=== PATIENT | female | born 1980 | race Caucasian/White ===

== ENCOUNTER → 2017-02-13 | Outpatient (CLI) | payer OTHER, MEDICAID ==
[~2017-02-13] MED LIST: IBUP600 PO; PERI8.6T PO
== END ==
LOC: HPND 13:13
PROVIDERS: ATTEND Obstetrics & Gynecology
DX: O09.522 Supervision of elderly multigravida, second trimester (principal); O43.192 Other malformation of placenta, second trimester; Z3A.20 20 weeks gestation of pregnancy
CPT/HCPCS: 76805

== ENCOUNTER → 2017-04-17 | Outpatient (CLI) | payer OTHER, MEDICAID ==
[~2017-04-17] MED LIST changes: +AMOX500T PO; +GUAI100S9 PO
== END ==
LOC: HPND 10:53
PROVIDERS: ATTEND Obstetrics & Gynecology
DX: O09.523 Supervision of elderly multigravida, third trimester (principal); O99.323 Drug use complicating pregnancy, third trimester; O43.193 Other malformation of placenta, third trimester; Z3A.29 29 weeks gestation of pregnancy
CPT/HCPCS: 76811; 76825; 76827; 93325

== ENCOUNTER 2017-05-06 14:22 | Emergency (ER) | payer MEDICAID, OTHER ==
[~2017-05-06 14:22] MED LIST changes: -AMOX500T PO; -GUAI100S9 PO
[2017-05-06] MEDS ORDERED: LACTATED RINGER'S 1000 ML INJ 1,000 ML IV ONE (15:45)
[2017-05-06] MEDS ORDERED: AMOX500T PO (15:48)
[2017-05-06] MEDS ORDERED: GUAI100S9 PO (15:48)
[2017-05-06] MEDS ORDERED: PROMETHAZINE/CODEINE 6.25 MG/10 MG/5 ML CUP PO ONE (16:00)
--- NOTE | 2017-05-06 16:19 | PD ---
HPI Chief Complaint feeling poorly for two weeks Date Seen: May 06, 2017 Time Seen: 15:15 Travel History International Travel<30 Days: No Contact w/Intl Traveler<30Days: No History of Present Illness HPI 37 YO at 32/3 weeks IUP presents with 2 weeks cold and flu-like sxs that she likely contracted from her 10 mo old son. Began as a viral-like illness that improved then got worse. Pt has had subjective fevers, associated chills and sweats, cough productive of green/brown sputum and N/V/D. The N/V/D abated several days ago, but coughing fits and feeling "lousy" persist. 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 Obstetric History Obstetric History Past Surgical History Surgical History: No Previous Surgery Family History Narrative Family History Father has neuropathy; mother is healthy Social History Alcohol Use: Yes (occasional use 1-2 times/month) Tobacco Use: Yes (former smoker: 20 years x 1 ppd and quit at 6 weeks into this ) Substance Abuse: No Allergies-Medications (Allergen,Severity, Reaction): Coded Allergies: No Known Allergies (Unverified , 07/12/16) Home Meds Active Scripts Amoxicillin 500 Mg [id number] Mg PO TID #15 TAB Ref 0 Prov:Lion Garsia MD R1 05/06/17 Codeine Phosphate/Guaifenesin (Guaifenesin-Codeine Syrup)5 Ml Liquid5 Ml PO Q6HR PRN (COUGH) #1 BOTTLE Prov:Lion Garsia MD R1 05/06/17 Sennosides-Docusate Sodium (Mary-Colace 8.6-50 mg)1 Tab Tab2 Tab PO Q12H PRN ( CONSTIPATION) #28 TAB Ref 1 Prov:Armida Solomon MD 07/12/16 Ibuprofen (Motrin 600 Mg Tab)600 Mg [id number] Mg PO Q6H PRN ( CRAMPING) # 30 TAB Ref 1 Prov:Armida Solomon MD 07/12/16 Review of Systems General / Constitutional: Fever, Chills Eyes: No: Diploplia, Blurred Vision, Visual changes, Pain, Photophobia, Other HENT: Headaches Cardiovascular: Chest Pain or Discomfort (associated with cough) Respiratory: Cough, Short of Breath, Wheezing Gastrointestinal: Nausea, Vomiting, Diarrhea, Abdominal Pain Genitourinary: Pelvic Pain Skin: No Rash, No Itching, No Dryness, No Lumps, No Change in Pigmentation, No Change in Nails, No Alopecia, No Lesions, No Breast Lumps, No Breast Tenderness , No Breast Swelling, No Other Neurologic: No: Weakness, Dizziness, Syncope, Focal Abnormalities, Coordination Problem, Headache, Slurred Speech, Seizures, Other Psychiatric: No: Anxiety, Depression, Suicidal Ideations, Disorder of Thought, Mood Disorder, Substance Abuse, Homicidal Ideation, Other Physical Exam AFVSS Narrative GENERAL: WDWN woman, notable for cough. SKIN: Warm and clammy. HEAD: Normocephalic and atraumatic. EYES: No scleral icterus. No injection or drainage. EOMI. ENT: No nasal drainage noted. Mucous membranes pink. Airway patent. No pharyngeal exudate. NECK: Supple, trachea midline. No lymphadenopathy. CARDIOVASCULAR: Regular rate and rhythm without murmurs, gallops, or rubs. RESPIRATORY: Breath sounds equal bilaterally. No accessory muscle use. Coughing regularly with mild expiratory wheezing. No rales or ronchi ABDOMEN/GI: Abdomen soft, mildly tender suprapubic area, bowel sounds present, no rebound, no guarding Gravid to 32 weeks size FHT's: Category: I Baseline: 120 Reactive: yes Variability: moderate Decels: no EXTREMITIES: No cyanosis or edema. BACK: Nontender without obvious deformity. No CVA tenderness. NEUROLOGICAL: Awake and alert. Motor and sensory grossly within normal limits. Normal speech. Data Data Vital Signs Reviewed: Yes Orders Vital Signs (Adult) .ON ADMISSION (05/06/17 15:33) ^ Labor Status (05/06/17 15:33) Urinalysis - C+S If Indicated (05/06/17 15:33) ^ Non Stress Test (05/06/17 15:33) ^ Hydration (05/06/17 15:33) Ceftriaxone Inj (Rocephin Inj) (05/06/17 16:45) Lactated Ringer's 1000 Ml Inj (Lr 1000 M (05/06/17 15:45) Promethazine/Codeine Liq (Phenergan-Code (05/06/17 15:45) MDM Medical Record Reviewed: Yes Narrative Course / MDM 37 YO at 32/2 weeks presents with cold/flu sxs x2 weeks 1. IUP - Reassuring status 2. Cold/flu sxs with ddx including viral or bacterial bronchitis vs PNA - LR 1L Fluid bolus - Rocephin 1g IV x1 followed by PO amox beginning tomorrow - Phenergan-Codeine capsules for cough - Sputum cx and gram stain for expectorated sputum - IV Zofran 4 mg for nausea associated with cough - Rapid flu antigen neg 3. Dispo: home Diagnosis Diagnosis: Primary Impression: Cough Additional Impression: Bronchitis Disposition: DISCHARGE HOME Condition: Stable Scripts Amoxicillin 500 Mg [id number] Mg PO TID #15 TAB Ref 0 Prov:Lion Garsia MD R1 05/06/17 Codeine Phosphate/Guaifenesin (Guaifenesin-Codeine Syrup)5 Ml Liquid5 Ml PO Q6HR PRN (COUGH) #1 BOTTLE Prov:Lion Garsia MD R1 05/06/17 Lion Garsia MD R1 May 06, 2017 16:19
[2017-05-06 16:30] VITALS: PULSE 97
[2017-05-06 16:32] LABS: BACTERIA, URINE MANY /hpf; BLOOD, URINE NEG (NEG); COMMENT (UR) CULTURE INDICATED; CULTURE IF INDICATED CULTURE INDICATED; GLUCOSE,URINE NEG (NEG); KETONE, URINE NEG (NEG); MUCUS URINE FEW /lpf (OCC); NITRITE,URINE NEG (NEG); PH, URINE 6.5 (5.0-8.5); SQUAMOUS EPITHELIAL CELL URINE 10 /hpf (0-5); URINE COLOR YELLOW (YELLW/STRAW)
[2017-05-06 16:35] VITALS: PULSE 105
[2017-05-06 16:40] VITALS: PULSE 129
[2017-05-06] MEDS ORDERED: cefTRIAXone INJ 1,000 MG in SODIUM CHLORIDE 0.9% INJ 100 ML IV ONE (16:45)
[2017-05-06] MEDS ORDERED: ONDANSETRON HCL 4 MG/2 ML VIAL IV PUSH ONE (17:00)
--- NOTE | 2017-05-06 17:14 | PD ---
History of Present Illness Date Seen: May 06, 2017 History of Present Illness Patient is 37-year-old white female [address] Munoz care now complains of severe coughing upper respiratory symptoms over the last 2 weeks been getting worse in the last day or so. She has had she describes a fever at home she did not measure , she's noted chills and the night sweats. She had some nausea vomiting today, the main problem is just this relentless cough, she is coughing up some green sputum as well she complains of her head feeling like is going to" explode" and that her chest hurts at times her lungs sound clear except some minimal wheezing there is no rales or rhonchi, upper respiratory tract within normal limits heart rate tracing is reactive and no contractions patient received a liter of IV fluid, Zofran 4 mg IV, 1 g of Rocephin IV and oral Phenergan with codeine cough syrup and given a prescription for codeine and: Guaifenesin elixir at home also given a prescription for amoxicillin 500 mg 3 times a day she is to increase her fluid intake at home use Tylenol liberally for discomfort and a low-grade fever. She is to follow-up with Dr. Munoz for further evaluation if symptoms persist Santiago Tan II, MD May 06, 2017 17:14
--- NOTE | 2017-05-08 15:53 | HHI.PR ---
Addendum to Inpatient Note Addendum Reason: Additional Documentation Additional Information Attempted to call patient and patient's about positive sputum culture for strep pneumoniae. Patient's number was wrong and no voicemail could be left at listed number for . Treatment she was given should adequately cover strep pneumoniae in any case (rocepin x1 plus 5 days of high dose amoxicillin). Diego Sue Dr., MD R1 May 08, 2017 15:52
== END 2017-05-06 18:20 | disposition home or self-care (01) ==
LOC: HOBED 14:22
DX: R05 Cough (principal); O99.513 Diseases of the respiratory system complicating pregnancy, third trimester; J40 Bronchitis, not specified as acute or chronic; B95.3 Streptococcus pneumoniae as the cause of diseases classified elsewhere; B96.89 Other specified bacterial agents as the cause of diseases classified elsewhere; Z3A.32 32 weeks gestation of pregnancy
CPT/HCPCS: 59025; 81001; 86403; 87070; 87086; 87186; 87205; 87804; 96374; 96375; 99284; J0696; J2405; J7120

== ENCOUNTER → 2017-05-14 | Outpatient (CLI) | payer OTHER, MEDICAID ==
[~2017-05-14] MED LIST changes: +AMOX500T PO; +GUAI100S9 PO
== END ==
LOC: HPND 11:09
PROVIDERS: ATTEND Obstetrics & Gynecology
DX: O35.8XX0 Maternal care for other (suspected) fetal abnormality and damage, not applicable or unspecified (principal); O09.523 Supervision of elderly multigravida, third trimester; O99.323 Drug use complicating pregnancy, third trimester; Z3A.33 33 weeks gestation of pregnancy
CPT/HCPCS: 76816

== ENCOUNTER → 2017-05-23 | Outpatient (CLI) | payer MEDICAID | LOC: HPND 11:14 | PROVIDERS: ATTEND Obstetrics & Gynecology | DX: O35.8XX0 Maternal care for other (suspected) fetal abnormality and damage, not applicable or unspecified (principal); O99.323 Drug use complicating pregnancy, third trimester; O09.523 Supervision of elderly multigravida, third trimester | CPT/HCPCS: 76815 ==

== ENCOUNTER 2017-06-11 12:47 | Inpatient (IN) | payer OTHER, MEDICAID ==
[2017-06-11] VITALS (27 sets, daily range): BP systolic 112–139; BP diastolic 57–94; PULSE 66–108; RESP 16–18; TEMP 97.7–98.8
[2017-06-11] MEDS ORDERED: fentaNYL 2MCG-BUPIV 0.125% INJ 100 ML ONE (13:49)
[2017-06-11 13:52] LABS: AUTOMATED NEUTROPHIL # 9.9 TH/MM3 (1.8-7.7); BASOPHIL % 0.3 % (0.0-2.0); EOSINOPHIL # 0.1 TH/MM3 (0-0.4); HEMATOCRIT 39.2 % (35.0-46.0); HEMO FLAGS DIFF FINAL; LYMPH % 18.2 % (9.0-44.0); LYMPHOCYTE # 2.4 TH/MM3 (1.0-4.8); MEAN CELL VOLUME 96.6 FL (80.0-100.0); MEAN CORPUSCULAR HEMOGLOBIN 32.3 PG (27.0-34.0); MEAN CORPUSCULAR HGB CONC 33.4 % (32.0-36.0); MONO % 5.6 % (0.0-8.0); NEUT % 74.9 % (16.0-70.0); PLATELET COUNT 268 TH/MM3 (150-450); RED BLOOD COUNT 4.06 MIL/MM3 (4.00-5.30); WHITE BLOOD COUNT 13.2 TH/MM3 (4.0-11.0)
[2017-06-11] MEDS ORDERED: MINERAL OIL 10 ML VIAL TOPICAL PRN (14:00)
[2017-06-11] MEDS ORDERED: OXYTOCIN 30 UNITS 500ML PREMIX IV ONE (14:00)
[2017-06-11] MEDS ORDERED: LACTATED RINGER'S 1000 ML BOLUS IV PRN (14:00)
[2017-06-11] MEDS ORDERED: NS 500 ML BOLUS IV PRN (14:00)
[2017-06-11] MEDS ORDERED: LACTATED RINGER'S 1000 ML IV SCH (14:00)
[2017-06-11] MEDS ORDERED: LIDOCAINE HCL 1% 50 ML VIAL INFIL PRN (14:00)
[2017-06-11] MEDS ORDERED: NS 1000 ML IV PRN (14:00)
[2017-06-11] MEDS ORDERED: LIDOCAINE HCL 1% 50 ML VIAL I-DERMAL PRN (14:15)
[2017-06-11] MEDS ORDERED: OXYTOCIN 30 UNITS/NS 500ML PREMIX IV SCH (14:15)
[2017-06-11] MEDS ORDERED: CITRIC ACID-SODIUM CITRATE LIQ 30 ML UDC PO SCH (14:15)
[2017-06-11] MEDS ORDERED: ONDANSETRON HCL 4 MG/2 ML VIAL IV PRN (14:15)
[2017-06-11 14:17] LABS: BLOOD, URINE NEG (NEG); COMMENT (UR) CULT NOT INDICATED; CULTURE IF INDICATED CULT NOT INDICATED; GLUCOSE,URINE NEG (NEG); KETONE, URINE NEG (NEG); MUCUS URINE FEW /lpf (OCC); NITRITE,URINE NEG (NEG); PH, URINE 7.5 (5.0-8.5); SQUAMOUS EPITHELIAL CELL URINE <1 /hpf (0-5); URINE COLOR YELLOW (YELLW/STRAW)
[2017-06-11] MEDS ORDERED: fentaNYL 2MCG-BUPIV 0.125% 100 ML EPIDURAL SCH (14:30)
[2017-06-11] MEDS ORDERED: ePHEDrine/NS 25 MG/5 ML SYR IV PRN (14:30)
[2017-06-11] MEDS ORDERED: NO SYSTEM NARCOTICS PRN (14:30)
[2017-06-11] MEDS ORDERED: DO NOT ADMINISTER ANTICOAGULANTS PRN (14:30)
[2017-06-11] MEDS ORDERED: MEASLES, MUMPS, RUBELLA VACCINE 0.5 ML VIAL SQ ONE (16:00)
[2017-06-11] MEDS ORDERED: DIPHTH/TETANUS/ACEL PERTUSSIS (BOOSTER) 0.5 ML VIAL/PFS IM ONE (16:00)
--- NOTE | 2017-06-11 17:25 | PD.OB.DELI ---
Delivery Date: Jun 11, 2017 Anesthesia: Epidural Episiotomy: None Vaginal Delivery: Normal Presentation: Occiput anterior Nuchal Cord: x2 Delayed cord clamping (45 sec): Yes Infant: Female One Minute : 8 Five Minute : 9 Weight: 6/5 Placenta: Spontaneous delivery, Intact, 3 vessel cord Laceration: Perineal laceration, 1 deg Repair: Vicryl running Estimated blood loss: 350 Additional Information Beautiful delivery of baby Garima Small first degree laceration of perineum and left periurethral area repaired with 3-0, 5-0 vicryl. Kodi Munoz MD Jun 11, 2017 17:25
[2017-06-11] MEDS ORDERED: ZOLPIDEM TARTRATE 5 MG TAB PO PRN (17:30)
[2017-06-11] MEDS ORDERED: ACETAMINOPHEN 325 MG TAB PO PRN (17:30)
[2017-06-11] MEDS ORDERED: OXYTOCIN 30 UNITS-500ML PREMIX 500 ML IV SCH (17:30)
[2017-06-11] MEDS ORDERED: BENZOCAINE 20% TOPICAL SPRAY 60 ML CAN TOPICAL PRN (17:30)
[2017-06-11] MEDS ORDERED: OXYTOCIN 30 UNITS-500ML PREMIX 500 ML IV ONE (17:30)
[2017-06-11] MEDS ORDERED: oxyCODONE/ACETAMINOPHEN 5 MG/325 MG TAB PO PRN (17:30)
[2017-06-11] MEDS ORDERED: ONDANSETRON ODT 4 MG TAB PO PRN (17:30)
[2017-06-11] MEDS ORDERED: SODIUM CHLORIDE 0.9% FLUSH 10 ML FLUSH IV FLUSH PRN (17:30)
[2017-06-11] MEDS ORDERED: WITCH HAZEL 50%/GLYCERIN 12.5% 40 PAD JAR TOPICAL PRN (17:30)
[2017-06-11] MEDS: ACETAMINOPHEN/HYDROcodone 325 MG/10 MG TAB PO SCH ×2 (18:00→21:47)
[2017-06-11] MEDS: IBUPROFEN 600 MG TAB PO PRN (19:09)
[2017-06-11] MEDS ORDERED: SODIUM CHLORIDE 0.9% FLUSH 10 ML FLUSH IV FLUSH SCH (21:00)
[2017-06-11] MEDS: DOCUSATE SODIUM 50 MG/SENNA 8.6 MG TAB PO PRN (21:47)
[2017-06-12] MEDS: IBUPROFEN 600 MG TAB PO PRN ×3 (00:37→21:07)
[2017-06-12] MEDS: ALUMINUM/MAGNESIUM/SIMETH 30 ML CUP PO PRN ×2 (00:37→16:01)
[2017-06-12] MEDS: oxyCODONE/ACETAMINOPHEN 5 MG/325 MG TAB PO PRN ×2 (00:37→07:46)
[2017-06-12] MEDS: ACETAMINOPHEN/HYDROcodone 325 MG/10 MG TAB PO SCH ×4 (04:08→22:20)
[2017-06-12 07:40] VITALS: BP 119/87; PULSE 67; RESP 18; TEMP 98.4
[2017-06-12] MEDS: HYDROmorphone HCL 2 MG TAB PO PRN ×2 (14:18→19:31)
[2017-06-12] MEDS: DOCUSATE SODIUM 50 MG/SENNA 8.6 MG TAB PO PRN (16:00)
--- NOTE | 2017-06-12 16:07 | HHI.OB ---
Subjective Post Day: 1 Objective Vitals/I&O Vital Signs Date Time Temp Pulse Resp B/P Pulse Ox O2 Delivery O2 Flow Rate FiO2 06/12/17 07:40 98.4 67 18 119/87 06/11/17 20:25 81 115/72 06/11/17 20:25 98.8 18 06/11/17 19:35 18 06/11/17 19:10 18 06/11/17 18:22 18 06/11/17 18:15 78 116/76 06/11/17 18:03 18 06/11/17 18:00 66 112/71 06/11/17 17:48 18 06/11/17 17:45 66 117/73 06/11/17 17:32 18 06/11/17 17:31 67 118/81 06/11/17 17:18 91 121/57 06/11/17 17:17 18 06/11/17 16:35 97.7 18 Objective Remarks GENERAL: Well-nourished, well-developed patient. CARDIOVASCULAR: Regular rate and rhythm without murmurs, gallops, or rubs. RESPIRATORY: Breath sounds equal bilaterally. No accessory muscle use. ABDOMEN/GI: Abdomen soft, non-tender. Fundus: Firm, non-tender at umbilicus. GENITOURINARY: Light to moderate bleeding. EXTREMITIES: No cyanosis or edema, non-tender, without signs of DVT. Medications and IVs Current Medications Medications (Trade) Dose Ordered Sig/Linh Route Start Time Stop Time Status Last Admin (NS Flush) 2 ml BID IV FLUSH 06/11/17 21:00 (NS Flush) 2 ml UNSCH PRN IV FLUSH 06/11/17 17:30 (Tylenol) 650 mg Q4H PRN PO 06/11/17 17:30 (Motrin) 600 mg Q6H PRN PO 06/11/17 17:30 06/12/17 06:24 (Americaine 20% Top Spr) 1 spray Q4H PRN TOPICAL 06/11/17 17:30 06/11/17 20:38 (Tucks Pads) 1 applic QID PRN TOPICAL 06/11/17 17:30 06/11/17 20:38 (Mary-Colace) 2 tab Q12H PRN PO 06/11/17 17:30 06/12/17 16:00 (Ambien) 5 mg HS PRN PO 06/11/17 17:30 (Mag-Al Plus Susp Liq) 15 ml Q8H PRN PO 06/11/17 17:30 06/12/17 16:01 (Zofran Odt) 4 mg Q6H PRN PO 06/11/17 17:30 ([place] 10-325 Mg) 1 tab Q6H PO 06/12/17 04:00 06/12/17 16:00 (Dilaudid) 2 mg Q4H PRN PO 06/12/17 11:00 06/12/17 14:18 Assessment/Plan Problem List: (1) (spontaneous vaginal delivery) Plan: ROUTINE Assessment and Plan PT DOING WELL PAIN WELL MANAGED WITH ORAL PAIN MEDIATION PT ALSO USING TUCKS AND ICE DIAPERS FOR PERINEUM SORENESS ROUTINE CARE Discharge Planning CONSIDER DC HOME TOMORROW Sanam Gutierrez Jun 12, 2017 16:07
[2017-06-13] MEDS: HYDROmorphone HCL 2 MG TAB PO PRN ×2 (02:41→10:01)
[2017-06-13] MEDS: DOCUSATE SODIUM 50 MG/SENNA 8.6 MG TAB PO PRN (05:48)
[2017-06-13] MEDS: ALUMINUM/MAGNESIUM/SIMETH 30 ML CUP PO PRN (05:48)
[2017-06-13] MEDS: IBUPROFEN 600 MG TAB PO PRN (05:49)
[2017-06-13] MEDS: ACETAMINOPHEN/HYDROcodone 325 MG/10 MG TAB PO SCH (05:49)
[2017-06-13] MEDS ORDERED: DILA2TAB2 PO (08:40)
--- NOTE | 2017-06-13 09:27 | HHI.OB ---
Subjective Post Day: 2 Objective Objective Remarks GENERAL: Well-nourished, well-developed patient. CARDIOVASCULAR: Regular rate and rhythm without murmurs, gallops, or rubs. RESPIRATORY: Breath sounds equal bilaterally. No accessory muscle use. ABDOMEN/GI: Abdomen soft, non-tender. Fundus: Firm, non-tender at umbilicus. GENITOURINARY: Light to moderate bleeding. EXTREMITIES: No cyanosis or edema, non-tender, without signs of DVT. Medications and IVs Current Medications Medications (Trade) Dose Ordered Sig/Linh Route Start Time Stop Time Status Last Admin (NS Flush) 2 ml BID IV FLUSH 06/11/17 21:00 (NS Flush) 2 ml UNSCH PRN IV FLUSH 06/11/17 17:30 (Tylenol) 650 mg Q4H PRN PO 06/11/17 17:30 (Motrin) 600 mg Q6H PRN PO 06/11/17 17:30 06/13/17 05:49 ([place] 20% Top Spr) 1 spray Q4H PRN TOPICAL 06/11/17 17:30 06/11/17 20:38 (Tucks Pads) 1 applic QID PRN TOPICAL 06/11/17 17:30 06/11/17 20:38 (Mary-Colace) 2 tab Q12H PRN PO 06/11/17 17:30 06/13/17 05:48 (Ambien) 5 mg HS PRN PO 06/11/17 17:30 (Mag-Al Plus Susp Liq) 15 ml Q8H PRN PO 06/11/17 17:30 06/13/17 05:48 (Zofran Odt) 4 mg Q6H PRN PO 06/11/17 17:30 ([place] 10-325 Mg) 1 tab Q6H PO 06/12/17 04:00 06/13/17 05:49 (Dilaudid) 2 mg Q4H PRN PO 06/12/17 11:00 06/13/17 02:41 Assessment/Plan Problem List: (1) (spontaneous vaginal delivery) Plan: ROUTINE Assessment and Plan PT DOING WELL PAIN WELL MANAGED WITH ORAL PAIN MEDIATION BREAST AND BOTTLE FEEDING, BONDING WIT INFANT INFANT MAY BE REQUIRED TO STAY IN HOSPITAL DUE TO MOTHERS PRESCRIBED LORTAB USE , MOM CAN GO TO STAY CLOSE ROUTINE CARE Discharge Planning DC HOME TODAY Sanam Gutierrez Jun 13, 2017 09:27
--- NOTE | 2017-06-13 09:29 | HHI.DCPOC ---
Discharge Care Plan Diagnosis: (1) (spontaneous vaginal delivery) Your Health Problems Are: Vaginal delivery Report Symptoms to Your Doctor -Temperature above 100.5 degrees -Redness, of incision or excessive or foul smelling drainage -Unusual pain or calf pain -Increased vaginal bleeding -Painful or difficulty urinating -Feelings of extreme sadness or anxiety after 2 weeks Goals to Promote Your Health * To prevent worsening of your condition and complications * To maintain your health at the optimal level Directions to Meet Your Goals Take your medications as prescribed Follow your dietary instruction Follow activity as directed Ensure plenty of rest for recovery Drink fluids for hydration Keep your appointments as scheduled Take your immunizations and boosters as scheduled If your symptoms worsen call your PCP, if no PCP go to Urgent Care Center or Emergency Room Smoking is Dangerous to Your Health. Avoid second hand smoke Call the 24-hour crisis hotline for domestic abuse at Sanam Gutierrez Jun 13, 2017 09:29
--- NOTE | 2017-06-13 09:33 | HHI.DS ---
Admission Date Jun 11, 2017 at 12:47 Discharge Date: Jun 13, 2017 Admitting Diagnosis AMA 37 + WEEKS CASEY 6 INDUCTION Diagnosis: (1) (spontaneous vaginal delivery) Diagnosis: Principal Delivery Date: Jun 11, 2017 Vaginal Delivery: Normal Infant: Female Brief History AMA PT TAKING LORTAB PRESCRIBED BY PAIN MANAGEMENT 37 WEEKS CASEY 6 INDUCTION Hospital Course INDUCTION OF LABOR ROUTINE Pt Condition on Discharge: Good Discharge Disposition: Discharge Home Discharge Instructions Diet Instructions: As Tolerated, No Restrictions Additional Diet Instructions: Drink at least 8 - 16 oz bottles of water a day Activities You Can Perform: Shower Only-No Bath, Sitz Bath Activities to Avoid: Lifting/Bending, Sexual Activity Additional Activity Instruc.: No driving until off pain medications Do not lift anything heavier than your baby in an infant carrier Follow up Referrals: ANTHROPOLOGY PROFESSOR - 2 Weeks @ [facility] [place] New Medications: Hydromorphone (Dilaudid) 2 Mg Tab 2 MG PO Q4H moderate pain #15 TAB Continued Medications: Amoxicillin (Amoxicillin) 500 Mg Tab 500 MG PO TID Infection #15 Ref 0 TAB Ibuprofen (Motrin 600 Mg Tab) 600 Mg Tab 600 MG PO Q6H PRN CRAMPING #30 Ref 1 TAB Sennosides-Docusate Sodium (Mary-Colace 8.6-50 mg) 1 Tab Tab 2 TAB PO Q12H PRN CONSTIPATION #28 Ref 1 TAB Discontinued Medications: Codeine Phosphate/Guaifenesin (Guaifenesin-Codeine Syrup) 5 Ml Liquid 5 ML PO Q6HR PRN COUGH #1 BOTTLE Sanam Gutierrez Jun 13, 2017 09:33
== END 2017-06-13 11:06 | disposition home or self-care (01) | DRG 775 ==
LOC: H2EB 12:47 → H1EA 19:42
PROVIDERS: ADMIT Obstetrics & Gynecology; ATTEND Obstetrics & Gynecology
PROC: 10E0XZZ Delivery of Products of Conception, External Approach (ICD-10-PCS; principal; 2017-06-11)
PROC: 0HQ9XZZ Repair Perineum Skin, External Approach (ICD-10-PCS; 2017-06-11)
PROC: 3E033VJ Introduction of Other Hormone into Peripheral Vein, Percutaneous Approach (ICD-10-PCS; 2017-06-11)
PROC: 3E0S3CZ (ICD-10-PCS; 2017-06-11)
PROC: 00HU33Z Insertion of Infusion Device into Spinal Canal, Percutaneous Approach (ICD-10-PCS; 2017-06-11)
DX: O41.03X0 Oligohydramnios, third trimester, not applicable or unspecified (principal); F11.20 Opioid dependence, uncomplicated; O99.324 Drug use complicating childbirth; O69.89X0 Labor and delivery complicated by other cord complications, not applicable or unspecified; O70.0 First degree perineal laceration during delivery; O26.893 Other specified pregnancy related conditions, third trimester; M54.9 Dorsalgia, unspecified; G62.9 Polyneuropathy, unspecified; R20.0 Anesthesia of skin; G43.909 Migraine, unspecified, not intractable, without status migrainosus; Z37.0 Single live birth; Z3A.37 37 weeks gestation of pregnancy
CPT/HCPCS: 59025; 76816; 76818; 76820; 81001; 85025; 88307; 90707; 90715; J7120